=== PATIENT | female | born 1960 | race Caucasian/White ===

== ENCOUNTER 2022-10-11 06:04 | Emergency (ER) | payer OTHER ==
[~2022-10-11] VITALS: Ht 165.1 cm; Wt 70.5 kg
[2022-10-11] VITALS (21 sets, daily range): BP systolic 82–179; BP diastolic 48–115
[2022-10-11 06:34] LABS: BASO% 0.2 % (0-3); EOS% 0.6 % (0-8); HEMATOCRIT 41.7 % (37.0-47.0); HEMOGLOBIN 13.8 g/dl (12.0-16.0); IMMATURE GRANULOCYTES 0.2 % (0.0-5.0); LYMPH% 10.7 % (15-41); MEAN CELL VOLUME 91.6 fL CALC (80.0-100.0); MEAN CORPUSCULAR HGB 30.3 pG CALC (26.0-32.0); MEAN CORPUSCULAR HGB CONC 33.1 g/dL CAL (32.0-36.0); MONO% 7.1 % (2-13); NEUT# 9.01 thou/uL (2.00-7.15); NEUT% 81.2 % (42-76); RED BLOOD COUNT 4.55 mill/uL (4.20-5.60); RED CELL DISTRI WIDTH 13.5 % (11.5-15.5)
[2022-10-11 06:43] LABS: ALBUMIN 4.9 g/dL (3.2-5.0); ALKALINE PHOSPHATASE 57 u/l (38-126); ANION GAP 11 (6-22 (CALC)); BUN 14 mg/dL (7-17); BUN/CREATININE RATIO 13 (12-20 (CALC)); CARBON DIOXIDE 24 mmol/l (22-30); CHLORIDE 104 mmol/l (95-108); CREATININE 1.1 mg/dL (0.5-1.0); GFR FOR AFR.AMER. > 60 ML/MIN (>=60 (CALC)); GFR OTHER RACES 51 ML/MIN (>=60 (CALC)); LIPASE 35 u/l (23-300); POTASSIUM 3.8 mmol/l (3.5-5.1); SGOT/AST 35 u/l (14-36); SODIUM 136 mmol/l (137-146); TOTAL PROTEIN 7.9 g/dL (6.3-8.2)
[2022-10-11] MEDS ORDERED: TAMSULOSIN0.4 MG PO (10:09)
[2022-10-11] MEDS ORDERED: TORADOL PO (10:09)
[2022-10-11] MEDS ORDERED: TRAMADOL HYDROC50 M1 PO (10:09)
[2022-10-11] MEDS ORDERED: ONDANSETRON4 MG PO (10:09)
== END 2022-10-11 11:45 | disposition home or self-care (01) | DRG 392 ==
LOC: ED 06:04
PROVIDERS: Family Medicine
DX: R10.9 Unspecified abdominal pain (principal); I95.2 Hypotension due to drugs; T40.2X5A Adverse effect of other opioids, initial encounter; K50.90 Crohn's disease, unspecified, without complications; Z93.2 Ileostomy status; Z87.442 Personal history of urinary calculi